=== PATIENT | female | born 1990 | race African-American/Black ===

== ENCOUNTER 2021-01-11 12:05 | Emergency (ER) | payer OTHER, SELFPAY ==
[2021-01-11] VITALS (8 sets, daily range): BP systolic 111–117; BP diastolic 65–77; PULSE 74–92; RESP 16–20; TEMP 36.1; O2SAT 95–100; BMI 22.1
--- NOTE | 2021-01-11 12:31 | DI.RAD.S_ITS ---
PROCEDURE: XR CHEST 1V INDICATIONS: chest pain TECHNIQUE: One view of the chest was acquired. COMPARISON: None. FINDINGS: Surgical changes and devices: None. Lungs and pleura: Lungs are clear. No pleural effusions or pneumothorax. Mediastinum: Mediastinal contours appear normal. Heart size is normal. Bones and chest wall: No suspicious bony lesions. Overlying soft tissues appear unremarkable. IMPRESSION: No acute cardiopulmonary disease process. Dictated by: Frances Carl MD, PhD on 01/11/2021 at 13:13 Approved by: Frances Carl MD, PhD on 01/11/2021 at 13:13
--- NOTE | 2021-01-11 12:46 | ED.GENADULT ---
HPI - General Adult General Chief complaint: Shortness of Breath/Dyspnea Stated complaint: ekg/dr referred Time Seen by Provider: 01/11/21 12:39 Source: patient Mode of arrival: Ambulatory Limitations: no limitations History of Present Illness HPI narrative: Patient is a 30-year-old female who was sent over from her primary doctor's office for evaluation of shortness of breath, pain with taking a deep breath and fast heart rate. Patient does have lupus. She is on medications for this. She has never had a blood clot before. No chest pain. She states she has had shortness of breath for the past 2 weeks and does get worse when she takes a deep breath. She went to her primary doctor's office today as a routine visit and was found to be tachycardic which did not improve with time. She was sent her to the emergency department for evaluation. Related Data Home Medications Medication Instructions Recorded Confirmed azathioprine 50 mg tablet 100 mg PO BEDTIME 01/11/21 01/11/21 cyclobenzaprine 10 mg tablet 10 mg PO BEDTIME 01/11/21 01/11/21 gabapentin 300 mg capsule 600 - 900 mg PO BEDTIME 01/11/21 01/11/21 hydroxychloroquine 200 mg tablet 400 mg PO BEDTIME 01/11/21 01/11/21 hydroxyzine HCl 25 mg tablet 25 mg PO BEDTIME 01/11/21 01/11/21 prednisone 5 mg tablet 10 mg PO BEDTIME 01/11/21 01/11/21 Allergies Allergy/AdvReac Type Severity Reaction Status Date / Time No Known Drug Allergies Allergy Verified 01/11/21 12:20 Review of Systems Constitutional Constitutional: Denies fever(s) and Denies headache(s) ENT Ears, Nose, Mouth, and Throat: Denies headache(s) Cardiovascular Cardiovascular: Reports as per HPI Respiratory Respiratory: Reports as per HPI Gastrointestinal Gastrointestinal: Reports system reviewed and no additional complaints, except as documented Genitourinary Genitourinary: Reports system reviewed and no additional complaints, except as documented Musculoskeletal Musculoskeletal: Reports system reviewed and no additional complaints, except as documented Integumentary/Breasts Skin/Breast: Reports system reviewed and no additional complaints, except as documented Neurologic Neurologic: Denies headache(s) Hematologic/Lymphatic On Anticoagulants: No Allergic/Immunologic Allergic/Immunologic: Reports system reviewed and no additional complaints, except as documented Patient History Medical History Insomnia Lupus Social History Smoking Status: Never smoker Smoking Status: Never smoker alcohol intake frequency: 0-2 drinks per day Substance Use Type: does not use Exam Initial Vital Signs Initial Vital Signs: Vital Signs Temperature 96.9 F L 01/11/21 12:15 Pulse Rate 92 H 01/11/21 12:15 Respiratory Rate 20 01/11/21 12:15 Blood Pressure 117/65 01/11/21 12:15 Pulse Oximetry 95 01/11/21 12:15 Const General: cooperative, healthy appearing and comfortable HENMT Head: normal to inspection and normocephalic Resp Effort & Inspection: normal respiratory effort Auscultation: clear to auscultation bilaterally Cardio Rate: regular rate Rhythm: regular rhythm GI Inspection: normal to inspection Skin General: no rashes or lesions noted Neuro General: patient alert, patient awake and moves all extremities Extrem General: normal to inspection and capillary refill normal Psych Appearance: grossly normal and well kempt Course Orders Ordered: ED Orders 01/11/21 12:25 COVID19 -Nasal swab/Pre-Proc Stat 01/11/21 12:31 XR chest 1V Stat EKG-12 Lead Stat 01/11/21 12:32 Complete Blood Count AUTO DIFF Stat Comprehensive Metabolic Panel Stat Lipase Stat Magnesium Stat Troponin & CK Cardiac Panel Stat 01/11/21 12:43 D Dimer Stat Test Serum,Qual Stat 01/11/21 14:22 CT angio chest PE protocol Stat Vital Signs Vital signs: Vital Signs - 8 hr 01/11/21 12:15 01/11/21 12:33 01/11/21 13:00 Temperature 96.9 F L Pulse Rate 92 H 84 82 Respiratory Rate 20 Blood Pressure 117/65 Pulse Oximetry 95 100 100 01/11/21 13:30 01/11/21 14:00 01/11/21 14:44 Temperature Pulse Rate 88 84 74 Respiratory Rate 16 Blood Pressure 111/76 Pulse Oximetry 100 100 99 01/11/21 15:00 01/11/21 15:30 Temperature Pulse Rate 82 83 Respiratory Rate 20 19 Blood Pressure 114/77 116/73 Pulse Oximetry 99 100 Medical Decision Making Lab Data Lab results reviewed: Yes I reviewed the patient's lab results. Result diagrams: 01/11/21 12:32 01/11/21 12:32 Labs: Lab Results 01/11/21 01/11/21 01/11/21 Range/Units 12:25 12:32 12:32 WBC 4.1 L (4.5-11.0) X10^3/uL RBC 3.68 L (4.0-5.2) X10^6/uL Hgb 13.1 (12.0-16.0) g/dL Hct 39.2 (36-46) % MCV 106.5 H (80-100) fL MCH 35.7 H (26-34) PG MCHC 33.5 (30-36) % RDW 17.4 H (11.6-14.8) % Plt Count 314 (150-400) X10^3/uL Neut % (Auto) 45.1 L (50-75) % Lymph % (Auto) 45.4 H (25-40) % [place] % (Auto) 8.6 (3-14) % Eos % (Auto) 0.4 L (2-4) % Baso % (Auto) 0.5 (0-2) % Neut # (Auto) 1800 (2669-7938) /uL Lymph # (Auto) 1800 (0133-6532) /uL [place] # (Auto) 300 (0-900) /uL Eos # (Auto) 0 (0-450) /uL Baso # (Auto) 0 (0-100) /uL D-Dimer (<230) ng/mL Sodium 136 L (137-145) mmol/L Potassium 4.3 (3.4-5.1) mmol/L Chloride 105 (98-107) mmol/L Carbon Dioxide 25 (22-32) mmol/L BUN 15 (7-17) mg/dL Creatinine 0.73 (0.52-1.04) mg/dL Estimated GFR > 60.0 (>60) mL/min BUN/Creatinine Ratio 20.5 (6-22) Glucose 77 (70-100) mg/dL Calcium 9.4 (8.4-10.2) mg/dL Magnesium 2.3 (1.6-2.3) mg/dL Total Bilirubin 1.1 (0.2-1.3) mg/dL AST 29 (14-36) IU/L ALT 27 (<35) IU/L Alkaline Phosphatase 64 (38-126) U/L Total Creatine Kinase 81 (30-135) U/L CK-MB (CK-2) TNP CK-MB (CK-2) Rel Index TNP Troponin I < 0.012 (0.01-0.034) ng/mL Total Protein 7.6 (6.3-8.2) g/dL Albumin 4.2 (3.5-5.0) g/dL Globulin 3.4 (1.7-4.1) g/dL Albumin/Globulin Ratio 1.2 (1.0-2.8) Lipase 62 (23-300) U/L Serum , Qual (Negative) SARS-CoV-2 (PCR) Negative (Negative) 01/11/21 01/11/21 Range/Units 12:43 12:43 WBC (4.5-11.0) X10^3/uL RBC (4.0-5.2) X10^6/uL Hgb (12.0-16.0) g/dL Hct (36-46) % MCV (80-100) fL MCH (26-34) PG MCHC (30-36) % RDW (11.6-14.8) % Plt Count (150-400) X10^3/uL Neut % (Auto) (50-75) % Lymph % (Auto) (25-40) % [place] % (Auto) (3-14) % Eos % (Auto) (2-4) % Baso % (Auto) (0-2) % Neut # (Auto) (9736-6616) /uL Lymph # (Auto) (1780-1023) /uL [place] # (Auto) (0-900) /uL Eos # (Auto) (0-450) /uL Baso # (Auto) (0-100) /uL D-Dimer 2091 H (<230) ng/mL Sodium (137-145) mmol/L Potassium (3.4-5.1) mmol/L Chloride (98-107) mmol/L Carbon Dioxide (22-32) mmol/L BUN (7-17) mg/dL Creatinine (0.52-1.04) mg/dL Estimated GFR (>60) mL/min BUN/Creatinine Ratio (6-22) Glucose (70-100) mg/dL Calcium (8.4-10.2) mg/dL Magnesium (1.6-2.3) mg/dL Total Bilirubin (0.2-1.3) mg/dL AST (14-36) IU/L ALT (<35) IU/L Alkaline Phosphatase (38-126) U/L Total Creatine Kinase (30-135) U/L CK-MB (CK-2) CK-MB (CK-2) Rel Index Troponin I (0.01-0.034) ng/mL Total Protein (6.3-8.2) g/dL Albumin (3.5-5.0) g/dL Globulin (1.7-4.1) g/dL Albumin/Globulin Ratio (1.0-2.8) Lipase (23-300) U/L Serum , Qual Negative (Negative) SARS-CoV-2 (PCR) (Negative) Imaging Data CT scan - chest: Radiologist's Impression: [address] [id number] Scan ReportSigned Patient: Kia Rosales LMR#: [id number]: 1990Acct:[id number]/Sex: 30 / FDate of Service: 01/11/21Loc: EDAccession Number: [id number] Procedure: CT angio chest PE protocol Ordering Provider: Hansel Dawson D.O. PROCEDURE: CT ANGIO CHEST PE PROTOCOL INDICATIONS: Chest pain, shortness of breath, tachycardia TECHNIQUE: After the administration of intravenous contrast, 2 mm thick sections acquired from the pulmonary apices to the posterior costophrenic angles. 3-dimensional maximum intensity projection (MIP) coronal and sagittal reformats were then acquired through the thorax. For radiation dose reduction, the following was used: automated exposure control, adjustment of mA and/or kV according to patient size. COMPARISON: None. FINDINGS: Image quality: Excellent. Pulmonary arteries: Pulmonary arteries are normal in size, and demonstrate no intraluminal filling defects to suggest central pulmonary embolism. Lungs and pleura: Lungs are clear. No pleural effusions or pneumothorax. Central and peripheral airways are patent. Mediastinum: Heart size is normal, without pericardial effusion. No mediastinal or hilar adenopathy. Thoracic aorta is normal in caliber and enhancement. Esophagus is normal in caliber, without hiatal hernia. Bones and chest wall: No suspicious bony lesions. Ribs and thoracic spine appear intact throughout. Thyroid gland unremarkable. Prominent bilateral axillary lymph nodes measure less than 1 cm in short axis. Abdomen: Visualized upper abdominal solid organs appear normal in the early arterial phase of enhancement. IMPRESSION: 1. No evidence of pulmonary embolism, aortic dissection 2. Numerous but nonenlarged bilateral axillary lymph nodes are not enlarged by criteria Approved by: Osman Lugo M.D. on 01/11/2021 at 14:12 Chest x-ray: Radiologist's Impression: [address] [id number] ReportSigned Patient: Nikunj Rosales#: [id number]: 1990Acct:[id number]/Sex: 30 / FDate of Service: 01/11/21Loc: EDAccession Number: [id number] Procedure: XR chest 1V Ordering Provider: Hansel Dawson D.O. PROCEDURE: XR CHEST 1V INDICATIONS: chest pain TECHNIQUE: One view of the chest was acquired. COMPARISON: None. FINDINGS: Surgical changes and devices: None. Lungs and pleura: Lungs are clear. No pleural effusions or pneumothorax. Mediastinum: Mediastinal contours appear normal. Heart size is normal. Bones and chest wall: No suspicious bony lesions. Overlying soft tissues appear unremarkable. IMPRESSION: No acute cardiopulmonary disease process. Dictated by: Frances Carl MD, PhD on 01/11/2021 at 13:13 Approved by: Frances Carl MD, PhD on 01/11/2021 at 13:13 ECG Data Attestation: I personally reviewed and interpreted this ECG as follows: Interpretation: Sinus rhythm Ventricular rate 83 Normal axis Normal QRS Normal QTC No ST T wave changes MDM Narrative Medical decision making narrative: Patient is nontoxic appearing. Not tachycardic. Not hypotensive. Patient did have a positive D-dimer. Resultant CT scan shows no signs of pneumonia, pneumothorax, pulmonary embolism, pulmonary edema. Provided reassurance to the patient. She was given return precautions and follow-up instructions. She will follow-up with her primary doctor. She expressed understanding and agreement. Discharge Plan Departure Patient Disposition: Home Clinical Impression: Shortness of Breath, Lupus Instructions: DI for Shortness of Breath Activity Restrictions/Additional Instructions: Your CT scan today and the rest of your workup is very reassuring. I recommend that you contact your primary doctor for follow-up and continue to take all of your medications as directed. Return to the emergency department for any new or worsening symptoms. Prescriptions: No Action cyclobenzaprine 10 mg tablet 10 mg PO BEDTIME RF: 0 prednisone 5 mg tablet 10 mg PO BEDTIME RF: 0 azathioprine 50 mg tablet 100 mg PO BEDTIME RF: 0 gabapentin 300 mg capsule 600 - 900 mg PO BEDTIME RF: 0 hydroxyzine HCl 25 mg tablet 25 mg PO BEDTIME RF: 0 hydroxychloroquine 200 mg tablet 400 mg PO BEDTIME RF: 0 Referrals: Cesar Oliver MD [Primary Care Provider] -
[2021-01-11 12:49] LABS: Add Manual Diff / Slide Review NO; Basophils Absolute Auto 0 /uL (0-100); Basophils Percent Auto 0.5 % (0-2); Eosinophils Absolute Auto 0 /uL (0-450); Eosinophils Percent Auto 0.4 % (2-4); Hematocrit 39.2 % (36-46); Hemoglobin 13.1 g/dL (12.0-16.0); Lymphocytes Absolute Auto 1800 /uL (1100-4500); Lymphocytes Percent Auto 45.4 % (25-40); Mean Corpuscular HGB Conc 33.5 % (30-36); Mean Corpuscular Hemoglobin 35.7 PG (26-34); Mean Corpuscular Volume 106.5 fL (80-100); Monocytes Absolute Auto 300 /uL (0-900); Monocytes Percent Auto 8.6 % (3-14); Neutrophils Absolute Auto 1800 /uL (1500-7000); Neutrophils Percent Auto 45.1 % (50-75); Platelet Count 314 X10^3/uL (150-400); Red Blood Cell Count 3.68 X10^6/uL (4.0-5.2); Red Cell Distribution Width 17.4 % (11.6-14.8); White Blood Cell Count 4.1 X10^3/uL (4.5-11.0)
[2021-01-11 12:56] LABS: Alanine Aminotransferase 27 IU/L (<35); Albumin 4.2 g/dL (3.5-5.0); Albumin Globulin Ratio 1.2 (1.0-2.8); Alkaline Phosphatase 64 U/L (38-126); Aspartate Aminotransferase 29 IU/L (14-36); BUN Creatinine Ratio 20.5 (6-22); Bilirubin Total 1.1 mg/dL (0.2-1.3); Blood Urea Nitrogen 15 mg/dL (7-17); Calcium 9.4 mg/dL (8.4-10.2); Carbon Dioxide 25 mmol/L (22-32); Chloride 105 mmol/L (98-107); Creatine Kinase 81 U/L (30-135); Estimated Glomerular Filt Rate > 60.0 mL/min (>60); Globulin 3.4 g/dL (1.7-4.1); Glucose 77 mg/dL (70-100); Lipase 62 U/L (23-300); Magnesium 2.3 mg/dL (1.6-2.3); Sodium 136 mmol/L (137-145); Total Protein 7.6 g/dL (6.3-8.2)
[2021-01-11 12:58] LABS: COVID19 -Nasal RAPID Negative (Negative)
[2021-01-11 12:58] LABS: HEMOLYSIS 24 (0-50); Potassium 4.3 mmol/L (3.4-5.1)
[2021-01-11 13:03] LABS: Pregnancy Test Serum,Qual Negative (Negative)
[2021-01-11 13:07] LABS: Troponin I < 0.012 ng/mL (0.01-0.034)
[2021-01-11 13:07] LABS: D Dimer 2091 ng/mL (<230)
--- NOTE | 2021-01-11 14:22 | DI.CT.S_ITS ---
PROCEDURE: CT ANGIO CHEST PE PROTOCOL INDICATIONS: Chest pain, shortness of breath, tachycardia TECHNIQUE: After the administration of intravenous contrast, 2 mm thick sections acquired from the pulmonary apices to the posterior costophrenic angles. 3-dimensional maximum intensity projection (MIP) coronal and sagittal reformats were then acquired through the thorax. For radiation dose reduction, the following was used: automated exposure control, adjustment of mA and/or kV according to patient size. COMPARISON: None. FINDINGS: Image quality: Excellent. Pulmonary arteries: Pulmonary arteries are normal in size, and demonstrate no intraluminal filling defects to suggest central pulmonary embolism. Lungs and pleura: Lungs are clear. No pleural effusions or pneumothorax. Central and peripheral airways are patent. Mediastinum: Heart size is normal, without pericardial effusion. No mediastinal or hilar adenopathy. Thoracic aorta is normal in caliber and enhancement. Esophagus is normal in caliber, without hiatal hernia. Bones and chest wall: No suspicious bony lesions. Ribs and thoracic spine appear intact throughout. Thyroid gland unremarkable. Prominent bilateral axillary lymph nodes measure less than 1 cm in short axis. Abdomen: Visualized upper abdominal solid organs appear normal in the early arterial phase of enhancement. IMPRESSION: 1. No evidence of pulmonary embolism, aortic dissection 2. Numerous but nonenlarged bilateral axillary lymph nodes are not enlarged by criteria Approved by: Osman Lugo M.D. on 01/11/2021 at 14:12
== END 2021-01-11 15:52 | disposition home or self-care (01) ==
PROVIDERS: Emergency Provider Emergency Medicine; PCP Family Medicine
DX: R06.02 Shortness of breath (principal); R07.9 Chest pain, unspecified; R00.0 Tachycardia, unspecified; M32.9 Systemic lupus erythematosus, unspecified
CPT/HCPCS: 36415; 71045; 71275; 80053; 82550; 83690; 83735; 84484; 84703; 85025; 85379; 87635; 93005; 93010; 99284; C9803; Q9967

== ENCOUNTER → 2021-06-27 14:50 | Outpatient (CLI) | payer OTHER, SELFPAY ==
--- NOTE | 2021-06-27 | DI.ECHO.S_ITS ---
[facility]---------+ [facility] +---------+ : : [address] : : : : [id number] : : : : Phone: [phone] Echocardiogram Report + + :Name: MANUEL ATKINSON Study Date: 06/27/2021 Height: 63 in : :[facility] ReadingLocation: Weight: 129 lb : : Gender: Female BSA: 1.6 m2 : :: 1990 Age: 30 yrs BP: 112/80 mmHg: :Reason For Study: CHEST PAIN : :Ordering Physician: ELVER, : :JOSHUA Performed By: Leelee Day : :Referring: JOSHUA RAYA : + + Interpretation Summary Normal echo study. Procedure: A two-dimensional transthoracic echocardiogram with color flow and Doppler was performed. There is no prior echocardiogram noted for this patient. The study quality was technically good. The heart rate ranged between 88-104 bpm during the study. Left Ventricle: The left ventricle appears normal in size, wall thickness, and systolic function without any focal wall motion abnormalities. The ejection fraction is estimated to be 60-65%. Diastolic parameters suggest probable normal left ventricular diastolic function and normal filling pressures. Right Ventricle: The right ventricle is normal in size and function. Atria: The left atrial size is normal. Right atrial size is normal. There is no Doppler evidence for an interatrial shunt. Mitral Valve: The mitral valve is normal in structure and function. There is no mitral regurgitation noted. Aortic Valve: The aortic valve is trileaflet. The aortic valve opens well. There is no aortic valve stenosis. No aortic regurgitation is present. Tricuspid Valve: The tricuspid valve is normal in structure and function. There is trace tricuspid regurgitation. Pulmonic Valve: The pulmonic valve leaflets are thin and pliable; valve motion is normal. There is no pulmonic valvular regurgitation. Great Vessels: The aortic root is normal size. The dimensions of the ascending aorta are normal. The IVC is of normal diameter and collapses greater than 50% with a sniff. This suggests a low right atrial pressure of 3 mm Hg. Pericardium/ Pleura There is no pericardial effusion. There is no pleural effusion. MMode/2D Measurements & Calculations LVIDd: 4.2 cm LVOT diam: 2.0 cm LVIDs: 2.5 cm Ao root diam: 2.4 cm FS: 41.7 % asc Aorta Diam: 2.4 cm IVSd: 0.54 cm Ao Arch Diam (Prox Trans): 2.1 cm LVPWd: 0.62 cm LV ralph. diameter/BSA (cm/m^2): 2.6 LV sys. diameter/BSA (cm/m^2): 1.5 LA A2 area: 12.2 cm2 RA long axis: 3.6 cm LA A4 area: 11.6 cm2 RA area: 9.0 cm2 LA length (vol): 4.3 cm RA vol: 18.9 ml LA vol: 28.1 ml RA : 11.8 ml/m2 LA vol index: 17.5 ml/m2 IVC diam: 0.92 cm RVD1 (basal): 2.5 cm RVD2 (mid): 2.3 cm TAPSE: 1.8 cm Doppler Measurements & Calculations Ao V2 max: 115.9 cm/sec LVOT Max Melvin: 84.1 cm/sec Ao V2 mean: 73.2 cm/sec LV V1 max P.8 mmHg Ao max P.4 mmHg LV V1 VTI: 14.7 cm Ao mean P.6 mmHg RADHA(I,D): 2.3 cm2 Ao V2 VTI: 19.5 cm RADHA(V,D): 2.2 cm2 sev ratio: 0.76 RADHA indexed to BSA (cm^2/m^2): 1.4 MV E max melvin: 66.1 cm/sec PA V2 max: 95.3 cm/sec MV A max melvin: 67.0 cm/sec PA V2 mean: 70.7 cm/sec MV E/A: 0.99 PA mean P.2 mmHg Med Peak E' Melvin: 9.8 cm/sec PA pr(Accel): 19.1 mmHg E/E' med: 6.7 Lat Peak E' Melvin: 13.2 cm/sec E/E' lat: 5.0 E/e' average: 5.9 MV dec time: 0.20 sec SV(LVOT): 44.3 ml Electronically signed by: Dominique Saucedo on Reading Physician:06/28/2021 09:15 AM
== END ==
PROVIDERS: PCP Family Medicine; Referring Provider Physician Assistant; Visit Provider Orthopaedic Surgery
DX: R07.9 Chest pain, unspecified (principal)
CPT/HCPCS: 93306

== ENCOUNTER → 2021-07-08 10:39 | Outpatient (CLI) | payer OTHER, SELFPAY ==
[2021-07-08 12:58] LABS: COVID19 -Nasal RAPID Negative (Negative)
== END ==
PROVIDERS: PCP Family Medicine; Visit Provider Family Medicine Sleep Medicine
DX: Z20.822 Contact with and (suspected) exposure to COVID-19 (principal)
CPT/HCPCS: 87635; C9803

== ENCOUNTER → 2021-07-11 14:56 | Outpatient (CLI) | payer OTHER, SELFPAY ==
--- NOTE | 2021-07-11 15:35 | PM.TREADMILL ---
Cardiac Stress Test Report Referral & Results Date Patient Seen: 07/11/21 Time Patient Seen: 15:35 Requesting provider: Stan Lowery Indication: Chest pain Rest ECG: Normal sinus rhythm Procedure Note: Standard Miguel protocol, 8:01, 8.1 METS Reduced exercise capacity, PRISCILA +19% Normal hemodynamic response to exercise; Accelerated HR response No chest pain or anginal symptoms No significant ST changes at peak exercise No ectopy Impression: Normal exercise stress test Please note: Actual ECG tracings can be found in the PACS system.
--- NOTE | 2021-07-11 18:54 | DI.NM.S_ITS ---
DATE OF SERVICE: 07/11/2021 PROCEDURE PERFORMED: Exercise treadmill stress test without imaging. ORDERING PROVIDER: Dr. Darnell Lowery. INDICATIONS: The patient is a 30-year-old female with SLE presents with intermittent exertional chest discomfort and dyspnea and frequent palpitations. FINDINGS: 1. The patient was able to exercise for 8 minutes, 1 second on a standard Miguel protocol, suggesting moderately reduced exercise capacity with an PRISCILA of +19%, achieving 10.1 METs. 2. She had an accelerated resting heart rate of 111 BPM that increased to 132 after 3 minutes of exercise, achieving a maximum heart rate of 189 BPM (98% of her predicted maximum). She had a normal blood pressure response to exercise. 3. She had no chest discomfort or other anginal symptoms. 4. Her resting ECG shows sinus tachycardia with relatively normal ST segments. There are no significant ST-segment shifts or arrhythmias with stress. IMPRESSION: 1. Normal exercise treadmill study for ischemia. 2. Moderately impaired exercise capacity with an accelerated resting heart rate with fairly rapid heart rate acceleration with low-level exercise but no angina or arrhythmias. Kia Rosales - AMADO/rio/cathy doc#: [id number]/job#: [id number] dd: 07/11/2021 16:31:00 dt: 07/11/2021 18:33:00 DICTATING /COPIES TO: Karl Mckinney MD; Stan Lowery MD COPIES MNE: RIO;
== END ==
PROVIDERS: PCP Family Medicine; Referring Provider Internal Medicine Cardiovascular Disease; Visit Provider Internal Medicine Cardiovascular Disease
DX: R07.89 Other chest pain (principal); R00.2 Palpitations; R06.00 Dyspnea, unspecified
CPT/HCPCS: 93017